=== PATIENT | female | born 1955 | race Caucasian/White ===

== ENCOUNTER 2016-11-09 11:45 | Emergency (ER) | payer OTHER, MEDICARE ==
[~2016-11-09] VITALS: Ht 147.3 cm; Wt 89.8 kg
[~2016-11-09 11:45] MED LIST: ALLOPURINOL300 M1 PO; ANTIVERT 12.512.5 MG PO; CAPTOPRIL25 M1 PO; CAPTOPRIL50 MG PO; FLUOXETINE HCL60 MG PO; FUROSEMIDE20 MG PO; LASIX20 MG PO; LEVOTHROID0.1 MG PO; LEVOTHYROXINE0.2 M2 PO; METOPROLOL TART25 M1 PO; MULTIPLE VITAM1 EAC2 PO; NAPHCON A 0.02515 ML OTIC; PRILOSEC OTC20 M1 PO; SIMVASTATIN20 MG PO; VALIUM2 MG PO
--- NOTE | 2016-11-09 11:50 | ED DYSPNEA/ASTHMA COMPLAINT ---
History of Present Illness General Chief Complaint: Dyspnea (COPD, CHF, Other) Stated Complaint: CONGESTION Source: patient, old records, EMS, W10 Exam Limitations: no limitations Vital Signs & Intake/Output Vital Signs & Intake/Output Vital Signs Date Time Temp Pulse Resp B/P Pulse O2 O2 Flow FiO2 Ox Delivery Rate 11/09 1313 94 Nasal 2.0L Cannula 11/09 1229 97.6 70 22 145/68 95 Nasal 3.0L Cannula 11/09 1215 96 Nasal 2.0L Cannula 11/09 1152 97.6 64 18 144/77 94 Nasal 2.0L Cannula Allergies Coded Allergies: NO KNOWN ALLERGIES (09/07/14) Reconcile Medications Allopurinol 300 MG TABLET 1 TAB PO DAILY GOUT (Reported) Amoxicillin/Clavulanate Potass (Amox-Clav 875-125 MG Tablet) 875 MG-125 MG TABLET 1 TAB PO BID ANTIBIOTIC, INFECTION (Reported) Atorvastatin Calcium 20 MG TABLET 1 TAB PO DAILY CHOLESTEROL (Reported) Calcium Carbonate/Vitamin D3 (Os-[place] 500+D3 Caplet) 500 MG-200 TABLET 1 TAB PO BID SUPPLEMENT (Reported) Captopril 25 MG TABLET 1 TAB PO BID BP (Reported) Docusate Sodium (Colace) 100 MG CAPSULE 1 CAP PO BID GI (Reported) Ergocalciferol (Vitamin D2) (Vitamin D2) 50,000 UNIT CAPSULE 1 CAP PO Q30D SUPPLEMENT (Reported) Ferrous Sulfate 325 MG (65 MG IRON) TABLET 1 TAB PO BID SUPPLEMENT (Reported) Fluoxetine HCl 60 MG TABLET 1 TAB PO DAILY MENTAL HEALTH (Reported) Furosemide 20 MG TABLET 1 TAB PO BID WATER PILL (Reported) Guaifenesin (Mucus Relief) 400 MG TABLET 1 TAB PO BID COLD SYMPTOMS (Reported ) Ipratropium/Albuterol Sulfate (Iprat-Albut 0.5-3(2.5) MG/3 Ml) 0.5 MG-3 MG (2.5 MG BASE)/3 ML AMPUL.NEB 1 VIAL INH 4 TIMES/DAY BREATHING PROBLEMS (Reported) Lactobacillus Acidophilus (Acidophilus) 1 EACH CAPSULE 1 CAP PO BID GI ( Reported) Levothyroxine Sodium 100 MCG TABLET 1 TAB PO DAILY AC HYPOTHYROID (Reported) Losartan Potassium 100 MG TABLET 1 TAB PO DAILY HEART (Reported) Metoprolol Tartrate 25 MG TABLET 1 TAB PO BID BP (Reported) Multivitamin (Multiple Vitamins) 1 EACH TABLET 1 TAB PO DAILY SUPPLEMENT ( Reported) Nitrofurantoin Monohyd/M-Cryst (Nitrofurantoin [place]-Mcr 100 MG) 100 MG CAPSULE 1 CAP PO BID ANTIBIOTIC, INFECTION (Reported) Omeprazole Magnesium (Prilosec Otc) 20 MG TABLET.DR 1 TAB PO DAILY GERD ( Reported) Polyethylene Glycol 3350 (Miralax) 17 GRAM POWD.PACK 1 PAC PO DAILY GI ( Reported) dissolve in water Potassium Chloride 10 MEQ CAPSULE.ER 1 CAP PO DAILY SUPPLEMENT (Reported) Sennosides (Senna) 8.6 MG TABLET 2 TAB PO DAILY GI (Reported) Simvastatin (Zocor) 20 MG TAB 1 TAB PO DAILY CHOLESTEROL (Reported) Triage Nurses Notes Reviewed? yes Onset: Gradual Duration: week(s): (6), worse persistent since (2 WEEKS) Timing: recent history Severity: moderate Activities at Onset: none Associated Symptoms: cough HPI: This is a 61-year-old female presents from [facility] for chief complaint of cough for 6 weeks, chest pain for 2 weeks. She is status post a course of Levaquin that ended on . She states she is coughing up green and yellow sputum. Denies any fever or chills. Denies any recent authorizations. Positive sick contacts at the [facility]. She states that her roommate is also ill. Patient is currently bedbound, hasn't walked in 8 weeks. She is awake alert and oriented 2. Denies any other symptoms specifically abdominal pain nausea vomiting or diarrhea. Denies any rashes. Past History Medical History Any Pertinent Medical History? 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 No Review of Systems Review of Systems Constitutional: Denies: chills, fever. EENTM: Reports: no symptoms. Respiratory: Reports: cough, short of breath, sputum production. Cardiovascular: Denies: chest pain, palpitations. GI: Denies: abdominal pain, diarrhea, vomiting. Genitourinary: Denies: dysuria. Musculoskeletal: Reports: no symptoms. Skin: Reports: no symptoms. Neurological/Psychological: Denies: confusion. Hematologic/Endocrine: Denies: bruising, bleeding, polyuria, polydipsia. Immunologic/Allergic: Denies: splenectomy. All Other Systems: Reviewed and Negative Physical Exam Physical Exam General Appearance: well developed/nourished, alert, awake, moderate distress, obese Head: atraumatic Eyes: Bilateral: PERRL, EOMI. Ears, Nose, Throat: normal pharynx, normal ENT inspection, hearing grossly normal Neck: normal inspection, supple, full range of motion Respiratory: wheezing Cardiovascular: regular rate/rhythm Peripheral Pulses: 2+ radial (R), 2+ radial (L) Gastrointestinal: soft, OBESE, NONTENDER Extremities: BILATERAL 2+ PEDAL EDEMA Neurologic/Psych: alert, oriented x 3 Skin: intact, normal color, warm/dry Core Measures ACS in differential dx? No Severe Sepsis Present: No Septic Shock Present: No Progress Differential Diagnosis: CHF, COPD, pneumonia Plan of Care: Orders Procedure Date/time Status Consistent Carbohydrate 1 11/09 D Active RT ED ORDERS 11/09 1158 Active RAPID VIRAL INFLUENZA A 11/09 1158 Active LOWER RESPIRATORY CULTURE 11/09 1158 Active BLOOD CULTURE 11/09 1158 Active TROPONIN LEVEL 11/09 1158 Complete COMPREHENSIVE METABOLIC PANEL 11/09 1158 Complete CBC WITHOUT DIFFERENTIAL 11/09 1158 Complete EKG 11/09 1147 Active Laboratory Tests 11/09/16 1210: Anion Gap 5, Estimated GFR > 60, BUN/Creatinine Ratio 38.0 H, Glucose 101 H, Calcium 8.7, Total Bilirubin 1.0, AST 58 H, ALT 50, Alkaline Phosphatase 92, Troponin I < 0.01, Total Protein 5.5 L, Albumin 2.7 L, Globulin 2.8, Albumin/ Globulin Ratio 1.0 L, CBC w Diff NO MAN DIFF REQ, RBC 4.10 L, MCV 95.0, MCH 30.8, RDW 16.1 H, MPV 8.3, Gran % 67.1, Lymphocytes % 21.5, Monocytes % 10.5 H , Eosinophils % 0.6, Basophils % 0.3, Absolute Granulocytes 6.6 H, Absolute Lymphocytes 2.1, Absolute Monocytes 1.0 H, Absolute Eosinophils 0.1, Absolute Basophils 0, PUBS MCHC 32.4 L Microbiology 11/09 1230 BLOOD: Blood Culture - RECD 11/09 1210 BLOOD: Blood Culture - RECD 11/09 1158 LOWER RESP: Respiratory Culture - ORD 11/09 1158 LOWER RESP: Gram Stain - ORD EKG, CXR. LABS ORDERED DUONEB ORDERED. CXR negative for pneumonia. Patient feeling better after duoneb. IV solumedrol ordered. (ZOE CAMILO,HILARIO) Diagnostic Imaging: Viewed by Me: Radiology Read. Discussed w/RAD: Radiology Read. Initial ED EKG: NSR Comments: PATIENT: JONATHON JERONIMO PRESENT AGE: 61 PATIENT ACCOUNT NO: [id number] : 56 LOCATION: [facility] ORDERING PHYSICIAN: HILARIO ENRIQUEZ MD SERVICE DATE: 11/09/16-1157 EXAM TYPE: RAD - XRY-PORTABLE CHEST XRAY EXAMINATION: XR PORTABLE CHEST CLINICAL INFORMATION: Cough, shortness of breath and hypoxia. Evaluate for pneumonia. COMPARISON: 02/28/2015 TECHNIQUE: Portable AP view of the chest was obtained. FINDINGS: Patient has a large body habitus. There is mild discoid atelectasis of the right midlung. No evidence of acute airspace opacification or pleural effusion. Cardiomediastinal silhouette has stable size and configuration. Again noted is a stent within the mediastinum. There is an old, healed fracture of the left humeral neck. IMPRESSION: Discoid atelectasis in the right midlung. No radiographic evidence of acute pneumonia compared to 02/28/2015. DICTATED BY: JUSTA APONTE MD DATE/TIME DICTATED:11/09/161247 ELECTROTYPE FINISHER:DISHA DATE/TIME TRANSCRIBED:11/09/161247 CONFIDENTIAL, DO NOT COPY WITHOUT APPROPRIATE AUTHORIZATION. <Electronically signed in Other Vendor System> SIGNED BY: JUSTA APONTE MD 11/09/16 1257 Departure Departure Time of Disposition: 1410 Disposition: ACUTE REHAB FACILITY Condition: Stable Clinical Impression Primary Impression: Bronchitis Referrals: VIK CAMILO,JENNIE Collins (PCP/Family) Departure Forms: Customer Survey General Discharge Information Critical Care Note Critical Care Note Critical Care Time: non-applicable
[2016-11-09] MEDS ORDERED: AMOX-CLAV 875-1 EACH PO (12:01)
[2016-11-09] MEDS ORDERED: NITROFURANTOIN100 M6 PO (12:02)
[2016-11-09] MEDS ORDERED: LOSARTAN POTAS100 M1 PO (12:03)
[2016-11-09] MEDS ORDERED: ATORVASTATIN CA20 M1 PO (12:04)
[2016-11-09] MEDS ORDERED: ACIDOPHILUS1 EACH PO (12:05)
[2016-11-09] MEDS ORDERED: FUROSEMIDE20 M1 PO (12:05)
[2016-11-09] MEDS ORDERED: LEVOTHYROXINE100 MC1 PO (12:06)
[2016-11-09] MEDS ORDERED: MIRALAX17 G1 PO (12:07)
[2016-11-09] MEDS ORDERED: COLACE100 M1 PO (12:07)
[2016-11-09] MEDS ORDERED: SENNA8.6 M3 PO (12:08)
[2016-11-09] MEDS ORDERED: IPRAT-ALBUT 0.5-3 ML INH (12:09)
[2016-11-09] MEDS ORDERED: MUCUS RELIEF400 M1 PO (12:10)
[2016-11-09] MEDS ORDERED: FERROUS SULFAT325 M3 PO (12:10)
[2016-11-09] MEDS ORDERED: VITAMIN D250000 UNIT PO (12:11)
[2016-11-09] MEDS ORDERED: OS-CAL 500+D31 EAC1 PO (12:11)
[2016-11-09] MEDS ORDERED: POTASSIUM CHLO10 ME3 PO (12:12)
[2016-11-09 12:31] LABS: ABSOLUTE BASOPHIL COUNT 0 /CUMM (0.0-0.2); ABSOLUTE EOSINOPHIL COUNT 0.1 /CUMM (0.0-0.7); ABSOLUTE GRANULOCYTE CT 6.6 /CUMM (1.4-6.5); ABSOLUTE LYMPH COUNT 2.1 /CUMM (1.2-3.4); BASOPHIL % 0.3 % (0.0-2.0); EOSINOPHIL % 0.6 % (0-5); GRANULOCYTE % 67.1 % (42.2-75.2); HEMATOCRIT 38.9 % (37-47); MEAN CORPUSCULAR HGB 30.8 PG (27.0-31.0); MEAN CORPUSCULAR HGB CONC 32.4 G/DL (33.0-37.0); MEAN PLATELET VOLUME 8.3 FL (7.4-10.4); PLATELET COUNT 273 /CUMM (130-400); RBC DISTRIBUTION WIDTH 16.1 % (11.5-14.5); WHITE BLOOD CELL COUNT 9.8 /CUMM (4.8-10.8)
--- NOTE | 2016-11-09 12:57 | RADIOLOGY REPORT ---
EXAMINATION: XR PORTABLE CHEST CLINICAL INFORMATION: Cough, shortness of breath and hypoxia. Evaluate for pneumonia. COMPARISON: 02/28/2015 TECHNIQUE: Portable AP view of the chest was obtained. FINDINGS: Patient has a large body habitus. There is mild discoid atelectasis of the right midlung. No evidence of acute airspace opacification or pleural effusion. Cardiomediastinal silhouette has stable size and configuration. Again noted is a stent within the mediastinum. There is an old, healed fracture of the left humeral neck. IMPRESSION: Discoid atelectasis in the right midlung. No radiographic evidence of acute pneumonia compared to 02/28/2015.
[2016-11-09 14:25] VITALS: BP 140/60
== END 2016-11-09 14:23 ==
LOC: ERH 11:45
PROVIDERS: Emergency Medicine
DX: J40 Bronchitis, not specified as acute or chronic (principal); R07.9 Chest pain, unspecified
CPT/HCPCS: 1263; 87040; 87070; 87804; 87804-59; 93005; 93010; 96374; J2930

== ENCOUNTER 2016-12-20 11:14 | Emergency (ER) | payer OTHER, MEDICARE ==
[~2016-12-20] VITALS: Ht 152.4 cm; Wt 136.1 kg
[~2016-12-20 11:14] MED LIST changes: +ACIDOPHILUS1 EACH PO; +AMOX-CLAV 875-1 EACH PO; +ATORVASTATIN CA20 M1 PO; +COLACE100 M1 PO; +FERROUS SULFAT325 M3 PO; +FUROSEMIDE20 M1 PO; +IPRAT-ALBUT 0.5-3 ML INH; +LEVOTHYROXINE100 MC1 PO; +LOSARTAN POTAS100 M1 PO; +MIRALAX17 G1 PO; +MUCUS RELIEF400 M1 PO; +NITROFURANTOIN100 M6 PO; +OS-CAL 500+D31 EAC1 PO; +POTASSIUM CHLO10 ME3 PO; +SENNA8.6 M3 PO; +VITAMIN D250000 UNIT PO
--- NOTE | 2016-12-20 11:17 | ED GI/GU/ABDOMINAL COMPLAINT ---
History of Present Illness General Chief Complaint: Nausea, Vomiting, Diarrhea Stated Complaint: NAUSEA/VOMITING, FEVER, ABDOMINAL PAIN Source: patient, old records, EMS Exam Limitations: physical impairment Vital Signs & Intake/Output Vital Signs & Intake/Output Vital Signs Date Time Temp Pulse Resp B/P Pulse O2 O2 Flow FiO2 Ox Delivery Rate 12/20 1638 96.0 69 20 116/50 97 Nasal 2.0L Cannula 12/20 1616 70 20 133/62 96 Nasal 2.0L Cannula 12/20 1441 96.0 70 20 113/54 95 Nasal 1.0L Cannula 12/20 1405 97.2 67 20 104/49 97 Nasal 2.0L Cannula 12/20 1305 96 Nasal 4.0L Cannula 12/20 1304 97.0 87 20 103/50 97 Nasal 4.0L Cannula 12/20 1125 96 Nasal 4.0L Cannula 12/20 1124 99.2 82 20 114/57 86 Room Air Allergies Coded Allergies: NO KNOWN ALLERGIES (09/07/14) Reconcile Medications Acetaminophen 325 MG TABLET 2 TAB PO Q6-8P PAIN CONTROL (Reported) TEMP > 101 Allopurinol 300 MG TABLET 1 TAB PO DAILY GOUT (Reported) Atorvastatin Calcium 20 MG TABLET 1 TAB PO DAILY CHOLESTEROL (Reported) Calcium Carbonate/Vitamin D3 (Os-[place] 500+D3 Caplet) 500 MG-200 TABLET 1 TAB PO BID SUPPLEMENT (Reported) Docusate Sodium (Colace) 100 MG CAPSULE 1 CAP PO BID GI (Reported) Ergocalciferol (Vitamin D2) (Vitamin D2) 50,000 UNIT CAPSULE 1 CAP PO Q30D SUPPLEMENT (Reported) Ferrous Sulfate 325 MG (65 MG IRON) TABLET 1 TAB PO BID SUPPLEMENT (Reported) Fluoxetine HCl 60 MG TABLET 1 TAB PO DAILY MENTAL HEALTH (Reported) Furosemide 20 MG TABLET 1 TAB PO BID WATER PILL (Reported) Ipratropium/Albuterol Sulfate (Iprat-Albut 0.5-3(2.5) MG/3 Ml) 0.5 MG-3 MG (2.5 MG BASE)/3 ML AMPUL.NEB 1 VIAL INH 4XDP BREATHING PROBLEMS (Reported) Levothyroxine Sodium 112 MCG TABLET 1 TAB PO DAILY THYROID HEALTH (Reported) Losartan Potassium 100 MG TABLET 1 TAB PO DAILY HEART (Reported) Metoprolol Tartrate 25 MG TABLET 1 TAB PO BID BP (Reported) Naloxone HCl (Narcan) 4 MG/ACTUATION SPRAY 1 SPRAY YANIV PRN BREATHING PROBLEMS (Reported) FOR OPIOD INDUCED RESP DEPRESSION, REPEAT X 1 IF NECESSARY Omeprazole Magnesium (Prilosec Otc) 20 MG TABLET.DR 2 TAB PO DAILY GERD ( Reported) Polyethylene Glycol 3350 (Miralax) 17 GRAM POWD.PACK 1 PAC PO DAILY GI ( Reported) dissolve in water Potassium Chloride 10 MEQ CAPSULE.ER 1 CAP PO DAILY SUPPLEMENT (Reported) Sennosides (Senna) 8.6 MG TABLET 2 TAB PO DAILY GI (Reported) Triage Nurses Notes Reviewed? yes ? N Is pt currently ? 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 Patient has had multiple episodes of loose watery stool diarrhea production with no blood or melena noted. History is limited however due to patient's history of traumatic brain injury however EMS states that there is no concern of melena or bright red blood from staff at [facility]. EMS states that the nursing facility state to them that patient has acting at her baseline (ROSALBA DAY) Past History Travel History Traveled to [place] past 21 day No Medical History Any Pertinent Medical History? 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 No (ROSALBA DAY) Review of Systems Review of Systems Constitutional: Reports: see HPI, fever. EENTM: Reports: no symptoms. Respiratory: Reports: see HPI. Denies: cough, short of breath. Cardiovascular: Reports: see HPI. Denies: chest pain, palpitations. GI: Reports: see HPI, abdominal pain, nausea, vomiting. Genitourinary: Reports: no symptoms. Musculoskeletal: Reports: no symptoms. Skin: Reports: no symptoms. Neurological/Psychological: Reports: no symptoms. Hematologic/Endocrine: Reports: no symptoms. Immunologic/Allergic: Reports: no symptoms. All Other Systems: Reviewed and Negative (ROSALBA DAY) Physical Exam Physical Exam General Appearance: no apparent distress, alert, comfortable, obese Gastrointestinal: normal bowel sounds, GENERALIZED ABDOMINAL TENDERNESS Comments: HEENT: Normal EENT exam, Neck: Supple, no lymphadenopathy, normal range of motion without pain or tenderness Back: Nontender, no CVA tenderness. Cardiovascular: Regular rate and rhythms no murmurs rubs or gallops, normal JVP Respiratory: Chest nontender. No respiratory distress.breath sounds clear to auscultation bilaterally Abdomen: Soft, GENERALIZED point tenderness noted no appreciable organomegaly. Normal bowel sounds. No ascites Extremity: No edema, no calf tenderness to palpation, normal and equal pulses. Neuro: Alert motor sensory normal, Skin: No appreciable rash on exposed skin, skin is warm and dry. Psych: Mood and affect is normal, memory and judgment is normal. Diagram Body Front & Back 1) Erythematous SKIN AND WARMTH NOTED Core Measures ACS in differential dx? No Severe Sepsis Present: No Septic Shock Present: No (ROSALBA DAY) Progress Differential Diagnosis: AAA, AMI, appendicitis, biliary colic, bowel obstruction , colon cancer, cholecystitis, diverticulitis, ectopic , endometritis, esophageal varices, gastritis, hepatitis, hernia, hemorrhoids, ischemic bowel, inflamm bowel dis, kidney stone, [place] tear, ovarian cyst, ovarian torsion, pancreatitis, PID/cervicitis, peptic ulcer, PUD/GERD, perforated viscous, SBO, UTI/pyelo Plan of Care: Orders Procedure Date/time Status Heart Healthy Diet 12/20 D Active LACTIC ACID 12/20 1419 Complete THYROID STIMULATING HORMONE 12/20 1200 Complete LIPASE 12/20 1200 Complete FREE T4 12/20 1200 Complete ETHANOL 12/20 1200 Complete AMYLASE 12/20 1200 Complete CULTURE,STOOL 12/20 1130 Active C.DIFFICILE 12/20 1130 Active Walker, Insertion/Removal/Asses 12/20 1121 Active CULTURE,URINE 03/26 1121 Active URINE DRUG SCREEN FOR ER ONLY 12/20 1120 Complete EKG 12/20 1120 Active ARTERIAL BLOOD GAS (GEN) 12/21 1119 Complete BLOOD CULTURE 12/20 1118 Active URINALYSIS 12/20 1118 Complete PARTIAL THROMBOPLASTIN TIME 12/20 1118 Complete PROTHROMBIN TIME 12/20 1118 Complete LACTIC ACID 12/20 1118 Complete DIRECT BILIRUBIN 12/20 1118 Complete COMPREHENSIVE METABOLIC PANEL 12/20 1118 Complete CBC WITHOUT DIFFERENTIAL 12/20 1118 Complete TYPE & SCREEN (NOT X-MATCH) 12/20 1118 Complete Laboratory Tests 12/20/16 1419: Lactic Acid 1.2 12/20/16 1200: Anion Gap 6, Estimated GFR > 60, BUN/Creatinine Ratio 24.4, Glucose 116 H, Lactic Acid 2.3 H, Calcium 9.3, Total Bilirubin 0.8, Direct Bilirubin 0.4, AST 81 H, ALT 47, Alkaline Phosphatase 94, Total Protein 5.5 L, Albumin 2.7 L, Globulin 2.8, Albumin/Globulin Ratio 1.0 L, Amylase < 30 L, Lipase 199, TSH 3.250, Free T4 1.72, PT 12.6 H, INR 1.20 H, APTT 31, CBC w Diff NO MAN DIFF REQ, RBC 4.03 L, MCV 93.7, MCH 30.2, RDW 16.9 H, MPV 9.0, Gran % 65.4, Lymphocytes % 17.3 L, Monocytes % 16.4 H, Eosinophils % 0.5, Basophils % 0.4, Absolute Granulocytes 4.1, Absolute Lymphocytes 1.1 L, Absolute Monocytes 1.0 H, Absolute Eosinophils 0, Absolute Basophils 0, PUBS MCHC 32.2 L, Serum Alcohol < 10.0 12/20/16 1145: pH 7.50 H, pCO2 34 L, pO2 80, HCO3 26, ABG O2 Sat (Measured) 96.0, Carboxyhemoglobin 0.1 L, O2 Concentration % 4.5L, O2 Delivery Method NC, Phlebotomy Draw Site RIGHT RADIAL 12/20/16 1143: Urine Opiates Screen < 100.00, Methadone Screen 42, Barbiturate Screen < 60, Ur Phencyclidine Scrn < 6.00, Amphetamines Screen < 100, U Benzodiazepines Scrn < 85, Urine Cocaine Screen < 50, Urine Cannabis Screen < 5.00, Urine Color YEL, Urine Clarity CLDY H, Urine pH 6.0, Ur Specific [place] 1.020, Urine Protein TRACE H, Urine Ketones NEG, Urine Nitrite POS H, Urine Bilirubin NEG, Urine Urobilinogen 0.2, Ur Leukocyte Esterase SMALL H, Ur Microscopic SEDIMENT EXAMINED, Urine WBC > 75 H, Ur Epithelial Cells FEW, Urine Bacteria MANY H, Urine Hemoglobin TRACE-INTACT, Urine Glucose NEG 12/20/16 1122: Amylase Cancelled, Lipase Cancelled 12/20/16 1121: Serum Alcohol Cancelled 12/20/16 1120: TSH Cancelled, Free T4 Cancelled Microbiology 12/20 1236 BLOOD: Blood Culture - RECD 12/20 1200 BLOOD: Blood Culture - RECD 12/20 1143 URINE ROUT: Urine Culture - RECD 12/20 1143 STOOL: Clostridium difficile Toxin A & B - RES 12/20 1143 STOOL: Stool Culture - RES 12/20 1119 URINE ROUT: Urine Culture - CAN Cancelled: NOT REC'D IN LAB - UC ON WALKER REC'D AT 1143 - SEE [id number] Patient currently is in no apparent distress. Patient was afebrile in the emergency room. Patient initially had hypotension noted however she was given IV fluid resuscitation and became normotensive. CT scan was remarkable for concerns of nonspecific colitis Patient does have concerns of UTI urine culture pending. Patient was noted to be sleeping in the ER where she did drop her oxygen saturation however I believe that this time the patient due to obesity but there is concerns of sleep apnea and which I strongly advised on patient's discharge paperwork to follow-up with sleep study to evaluate concerns of CPAP at night. Patient was arousable and followed all commands and no concerns of neurological dysfunction. Patient then was by mouth challenged and was able tolerate soft liquid diet with no exacerbation of symptoms. Patient discharge instructions included follow-up with pulmonary for sleep study, begin Bactrim for UTI and a clear liquid bland diet to rest bowels and to follow up with GI if no better in 2 days. Discussed disposition plan with Dr. Hadley who agrees (FAVIO CHESTER,ROSALBA) Diagnostic Imaging: Viewed by Me: CT Scan. Radiology Impression: SEE COMMENTS Initial ED EK BPM, LVH Prior EKG: unchanged Comments: PATIENT: JONATHON JERONIMO PRESENT AGE: 61 PATIENT ACCOUNT NO: [id number] : 56 LOCATION: [facility] ORDERING PHYSICIAN: ROSALBA CHESTER SERVICE DATE: 12/20/16 EXAM TYPE: CAT - CT ABD & PELVIS W IV CONTRAST EXAMINATION: CT ABDOMEN AND PELVIS WITH CONTRAST CLINICAL INFORMATION: Abdominal pain and fever COMPARISON: 02/20/2013 CT scan TECHNIQUE: Multidetector volumetric imaging was performed from the superior aspect of the liver through the pubic symphysis following administration of 95 ml of Optiray 320 Sagittal and coronal reformatted images were obtained on the technologist workstation. DLP: 1173 mGy-cm FINDINGS: LUNG BASES: Mild bibasilar dependent markings more suggestive of atelectasis. Prominent mitral annular calcification seen. Visualized left atrium appears to be enlarged. LIVER, GALLBLADDER, AND BILIARY TREE: There is the suggestion of a small intrahepatic portosystemic shunt in the lateral left lobe of the liver. No focal hepatic lesions seen otherwise. No biliary ductal dilatation. Tiny gallstone suspected in the dependent portion of the otherwise unremarkable gallbladder. PANCREAS: Diffuse fatty replacement but no focal abnormality seen. SPLEEN: Unremarkable. ADRENAL GLANDS: Unremarkable. KIDNEYS AND URETERS: 1.4 cm exophytic probable cyst off of the lateral lower pole of the left kidney. This is too small to accurately characterize with beam hardening artifact from the adjacent left arm but on the thin slice images does appear to measure fluid density. Otherwise the kidneys are normal in size, shape, and attenuation. No hydronephrosis, hydroureter, or calculi seen. No perinephric stranding. BLADDER: Decompressed by Walker catheter. GASTROINTESTINAL TRACT: There is scattered colonic diverticulosis but no evidence for diverticulitis. No pericolonic inflammatory changes. I cannot exclude mild thickening in the rectosigmoid colon however this area is decompressed and difficult to evaluate otherwise. This had a more normal appearance on the 2013 CT scan. Normal-appearing appendix in the right lower quadrant. ABDOMINAL WALL: No significant hernia is appreciated. LYMPHOVASCULAR STRUCTURES: No lymphadenopathy. The aorta is unremarkable. PELVIC VISCERA: Probable uterine fibroid again seen along the left fundal portion of the uterus. OSSEOUS STRUCTURES: Multilevel degenerative changes in the spine but no acute bony abnormality appreciated. IMPRESSION: Although decompressed, there is a suggestion of focal wall thickening in the rectosigmoid colon. A subtle nonspecific colitis cannot be excluded. This does not have the typical appearance for diverticulitis. I do not appreciate any significant pericolonic inflammatory changes however. No free air or free fluid. Chronic appearing changes otherwise as described. DICTATED BY: HANANE CERVANTES MD DATE/TIME DICTATED:12/20/161355 [employer] MANAGER:DISHA PATIENT: JONATHON JERONIMO PRESENT AGE: 61 PATIENT ACCOUNT NO: [id number] : 56 LOCATION: [facility] ORDERING PHYSICIAN: ROSALBA CHESTER SERVICE DATE: 12/20/16 EXAM TYPE: RAD - XRY-PORTABLE CHEST XRAY EXAMINATION: XR PORTABLE CHEST CLINICAL INFORMATION: Hypoxia COMPARISON: None TECHNIQUE: Portable AP view of the chest was obtained. FINDINGS: The heart is within limits of normal size. Again, there is a stent overlying the mediastinum and pulmonary vascularity appears normal and there is no vascular congestion or effusion. Subtle coarsening of the bronchovascular markings is noted at the left retrocardiac region which may represent early infiltrate and/or subsegmental atelectasis. IMPRESSION: Early infiltrate versus subsegmental atelectasis left posterior base. Right lung clear. No vascular congestion. (ROSALBA DAY) Departure Departure Disposition: HOME OR SELF CARE Condition: Stable Clinical Impression Primary Impression: Colitis Secondary Impressions: Sleep apnea, UTI (urinary tract infection) Referrals: VIK CAMILO,JENNIE Collins (PCP/Family) Additional Instructions: W-10 DICTATED INSTRUCTIONS BACTRIM DS FOR UTI CLEAR liquid and bland diet. Zofran for his nausea follow-up with pulmonology for sleep apnea evaluation. Departure Forms: Customer Survey General Discharge Information (ROSALBA DAY) PA/AIRFREIGHT OPERATIONS AGENT Co-Sign Statement Statement: ED Attending supervision documentation- [X] I saw and evaluated the patient. I have also reviewed all the pertinent lab results and diagnostic results. I agree with the findings and the plan of care as documented in the PA's/AIRFREIGHT OPERATIONS AGENT's documentation. [X] I have reviewed the ED Record and agree with the PA's/AIRFREIGHT OPERATIONS AGENT's documentation. [] Additions or exceptions (if any) to the PAs/AIRFREIGHT OPERATIONS AGENT's note and plan are summarized below: [] (VAHID CAMILO,YONATAN Coker)
[2016-12-20] MEDS ORDERED: LEVOTHYROXINE112 MCG PO (11:33)
[2016-12-20] MEDS ORDERED: ACETAMINOPHEN325 M2 PO (11:43)
[2016-12-20] MEDS ORDERED: NARCAN4 MG NAS (11:47)
[2016-12-20 12:18] LABS: ABSOLUTE BASOPHIL COUNT 0 /CUMM (0.0-0.2); ABSOLUTE EOSINOPHIL COUNT 0 /CUMM (0.0-0.7); ABSOLUTE GRANULOCYTE CT 4.1 /CUMM (1.4-6.5); ABSOLUTE LYMPH COUNT 1.1 /CUMM (1.2-3.4); BASOPHIL % 0.4 % (0.0-2.0); EOSINOPHIL % 0.5 % (0-5); GRANULOCYTE % 65.4 % (42.2-75.2); HEMATOCRIT 37.7 % (37-47); MEAN CORPUSCULAR HGB 30.2 PG (27.0-31.0); MEAN CORPUSCULAR HGB CONC 32.2 G/DL (33.0-37.0); MEAN CORPUSCULAR VOLUME 93.7 FL (81.0-99.0); PLATELET COUNT 217 /CUMM (130-400); RBC DISTRIBUTION WIDTH 16.9 % (11.5-14.5); RED BLOOD CELL CT 4.03 /CUMM (4.20-5.40); WHITE BLOOD CELL COUNT 6.2 /CUMM (4.8-10.8)
[2016-12-20 12:29] LABS: PT 12.6 SEC (9.4-12.5); PTT 31 SEC (25-37)
--- NOTE | 2016-12-20 12:31 | RADIOLOGY REPORT ---
EXAMINATION: XR PORTABLE CHEST CLINICAL INFORMATION: Hypoxia COMPARISON: None TECHNIQUE: Portable AP view of the chest was obtained. FINDINGS: The heart is within limits of normal size. Again, there is a stent overlying the mediastinum and pulmonary vascularity appears normal and there is no vascular congestion or effusion. Subtle coarsening of the bronchovascular markings is noted at the left retrocardiac region which may represent early infiltrate and/or subsegmental atelectasis. IMPRESSION: Early infiltrate versus subsegmental atelectasis left posterior base. Right lung clear. No vascular congestion.
--- NOTE | 2016-12-20 14:07 | CT SCAN REPORT ---
EXAMINATION: CT ABDOMEN AND PELVIS WITH CONTRAST CLINICAL INFORMATION: Abdominal pain and fever COMPARISON: 02/20/2013 CT scan TECHNIQUE: Multidetector volumetric imaging was performed from the superior aspect of the liver through the pubic symphysis following administration of 95 ml of Optiray 320 Sagittal and coronal reformatted images were obtained on the technologist workstation. DLP: 1173 mGy-cm FINDINGS: LUNG BASES: Mild bibasilar dependent markings more suggestive of atelectasis. Prominent mitral annular calcification seen. Visualized left atrium appears to be enlarged. LIVER, GALLBLADDER, AND BILIARY TREE: There is the suggestion of a small intrahepatic portosystemic shunt in the lateral left lobe of the liver. No focal hepatic lesions seen otherwise. No biliary ductal dilatation. Tiny gallstone suspected in the dependent portion of the otherwise unremarkable gallbladder. PANCREAS: Diffuse fatty replacement but no focal abnormality seen. SPLEEN: Unremarkable. ADRENAL GLANDS: Unremarkable. KIDNEYS AND URETERS: 1.4 cm exophytic probable cyst off of the lateral lower pole of the left kidney. This is too small to accurately characterize with beam hardening artifact from the adjacent left arm but on the thin slice images does appear to measure fluid density. Otherwise the kidneys are normal in size, shape, and attenuation. No hydronephrosis, hydroureter, or calculi seen. No perinephric stranding. BLADDER: Decompressed by Ruiz catheter. GASTROINTESTINAL TRACT: There is scattered colonic diverticulosis but no evidence for diverticulitis. No pericolonic inflammatory changes. I cannot exclude mild thickening in the rectosigmoid colon however this area is decompressed and difficult to evaluate otherwise. This had a more normal appearance on the 2013 CT scan. Normal-appearing appendix in the right lower quadrant. ABDOMINAL WALL: No significant hernia is appreciated. LYMPHOVASCULAR STRUCTURES: No lymphadenopathy. The aorta is unremarkable. PELVIC VISCERA: Probable uterine fibroid again seen along the left fundal portion of the uterus. OSSEOUS STRUCTURES: Multilevel degenerative changes in the spine but no acute bony abnormality appreciated. IMPRESSION: Although decompressed, there is a suggestion of focal wall thickening in the rectosigmoid colon. A subtle nonspecific colitis cannot be excluded. This does not have the typical appearance for diverticulitis. I do not appreciate any significant pericolonic inflammatory changes however. No free air or free fluid. Chronic appearing changes otherwise as described.
[2016-12-20 16:38] VITALS: BP 116/50
== END 2016-12-20 16:53 ==
LOC: ERH 11:14
PROVIDERS: Physician Assistant
DX: K52.9 Noninfective gastroenteritis and colitis, unspecified (principal); N39.0 Urinary tract infection, site not specified; G47.30 Sleep apnea, unspecified; R50.9 Fever, unspecified; E11.9 Type 2 diabetes mellitus without complications; E03.9 Hypothyroidism, unspecified; I10 Essential (primary) hypertension; R10.9 Unspecified abdominal pain; Z79.899 Other long term (current) drug therapy
CPT/HCPCS: 74177; 80307; 81001; 87040; 87045; 87086; 93005; 93010; 96374; 96375; G0480; J0696; J1885; J2405

== ENCOUNTER 2016-12-25 21:16 | Emergency (ER) | payer OTHER, MEDICARE ==
[~2016-12-25] VITALS: Ht 149.9 cm; Wt 90.7 kg
[~2016-12-25 21:16] MED LIST changes: +ACETAMINOPHEN325 M2 PO; +LEVOTHYROXINE112 MCG PO; +NARCAN4 MG NAS
--- NOTE | 2016-12-25 21:33 | ED CARDIAC/CP/PALPITATIONS ---
History of Present Illness General Chief Complaint: Chest Pain Stated Complaint: CHEST PAIN, SOB Source: patient, old records, EMS Exam Limitations: no limitations Vital Signs & Intake/Output Vital Signs & Intake/Output Vital Signs Date Time Temp Pulse Resp B/P Pulse O2 O2 Flow FiO2 Ox Delivery Rate 12/25 2324 98.3 70 20 134/62 93 Nasal 2.0L Cannula 12/254 94 Nasal 2.0L Cannula 12/25 2122 97.6 74 20 174/72 94 Nasal 2.0L Cannula ED Intake and Output 12/26 0000 12/25 1200 Intake Total 60 Output Total Balance 60 Intake, Oral 60 Patient 200 lb Weight Allergies Coded Allergies: NO KNOWN ALLERGIES (09/07/14) Reconcile Medications Acetaminophen 325 MG TABLET 2 TAB PO Q6H PRN PAIN/TEMP>101 (Reported) TEMP > 101 Acetaminophen (Acephen) 650 MG SUPP.RECT 1 SUPP MA Q6H PRN PAIN/TEMP>101 ( Reported) Atorvastatin Calcium 20 MG TABLET 1 TAB PO DAILY CHOLESTEROL (Reported) Bisacodyl (Dulcolax) 10 MG SUPP.RECT 1 SUP RC DAILY PRN CONSTIPATION ( Reported) Calcium Carbonate/Vitamin D3 (Os-Jeramie 500+D3 Caplet) 500 MG-200 TABLET 1 TAB PO BID SUPPLEMENT (Reported) Docusate Sodium (Colace) 100 MG CAPSULE 1 CAP PO BID GI (Reported) Ergocalciferol (Vitamin D2) (Vitamin D2) 50,000 UNIT CAPSULE 1 CAP PO Q30D SUPPLEMENT (Reported) Ferrous Sulfate 325 MG (65 MG IRON) TABLET 1 TAB PO BID SUPPLEMENT (Reported) Furosemide 20 MG TABLET 1 TAB PO BID WATER PILL (Reported) Glucagon,Human Recombinant (Glucagon Emergency Kit) 1 MG KIT 1 MG IM AD PRN HYPOGLYCEMIA (Reported) Guaifenesin (Adult Wal-Tussin) 100 MG/5 ML LIQUID 10 ML PO Q6H PRN MUCUS ( Reported) Ipratropium/Albuterol Sulfate (Iprat-Albut 0.5-3(2.5) MG/3 Ml) 0.5 MG-3 MG (2.5 MG BASE)/3 ML AMPUL.NEB 1 VIAL INH Q8H RESPIRATORY (Reported) Ipratropium/Albuterol Sulfate (Iprat-Albut 0.5-3(2.5) MG/3 Ml) 0.5 MG-3 MG (2.5 MG BASE)/3 ML AMPUL.NEB 3 ML INH Q6H PRN WHEEZE/SOB (Reported) Lactobacillus Acidophilus (Acidophilus) 1 EACH CAPSULE 1 CAP PO BID PROBIOTIC (Reported) Levothyroxine Sodium 112 MCG TABLET 1 TAB PO DAILY THYROID HEALTH (Reported) Losartan Potassium 100 MG TABLET 1 TAB PO DAILY HEART (Reported) Magnesium Hydroxide (Milk Of Magnesia) 400 MG/5 ML ORAL.SUSP 30 ML PO Q3D PRN CONSTIPATION (Reported) Na Phos,M-B/Na Phos,Di-Ba (Fleet Enema) 19 GRAM-7 GRAM/118 ML ENEMA 1 E RC DAILY PRN CONSTIPATION (Reported) Naloxone HCl (Narcan) 4 MG/ACTUATION SPRAY 1 SPRAY YANIV PRN BREATHING PROBLEMS (Reported) FOR OPIOD INDUCED RESP DEPRESSION, REPEAT X 1 IF NECESSARY Polyethylene Glycol 3350 (Miralax) 17 GRAM POWD.PACK 1 PAC PO DAILY GI ( Reported) dissolve in water Potassium Chloride 10 MEQ CAPSULE.ER 1 CAP PO DAILY SUPPLEMENT (Reported) Sennosides (Senna) 8.6 MG TABLET 2 TAB PO DAILY GI (Reported) Triage Note: PT BIBA FROM [facility] C/O CHEST PAIN AND EPIGASTRIC PAIN. PT CURRENTLY ON ABX FOR UTI. STATES IS ALWAY SOB, ON NC 2L AT [place]. O2 SAT 94%. +ANASARCA. "I'M ALWAYS SWOLLEN" EKG BEING DONE Triage Nurses Notes Reviewed? 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 When questioned as to why she came in tonight regarding this pain patient had no answer she states is no different from her typical pain. She denies cough shortness of breath hemoptysis. Patient denies worsening swelling in her extremities. She is on Lasix 20 mg a day. She is currently being treated for urinary tract infection. No fever no chills. The patient seen here 5 days ago for nausea vomiting diarrhea which she states has since resolved. Nothing makes pain better or worse (ROSALBA WILLIAM) Past History Travel History Traveled to [place] past 21 day No Medical History Any Pertinent Medical History? see below for history Neurological: TBI ENCEPHALOMALACIA EENT: NONE Cardiovascular: hypertension Respiratory: NONE Gastrointestinal: NONE Hepatic: NONE Renal: NONE Musculoskeletal: gout Psychiatric: depression Endocrine: hypothyroidism, DIABETES, DIET-CONTROLLED Blood Disorders: NONE Cancer(s): NONE CHILDREN'S TUTOR/Reproductive: NONE History of MRSA: No History of VRE: No Surgical History Surgical History: unobtainable Psychosocial History Who do you live with Patient/Self Services at Home Home Health Aide What is your primary language Malay Tobacco Use: Never used Family History Family History, If Any: MOTHER FHx: stomach cancer Hx Contributory? No (ROSALBA WILLIAM) Review of Systems Review of Systems Constitutional: Reports: see HPI. All Other Systems: Reviewed and Negative Comments Review of systems: See HPI, All other systems negative. Constitutional, no chills no fever, no malaise HEENT: No visual changes no sore throat no congestion, no ear pain Cardiovascular: chest pain , no palpitation , no orthopnea ankle swelling Skin, no jaundice no rashes, no change in skin Respiratory: No dyspnea no cough no sputum no hemoptysis GI: No nausea no vomiting, no diarrhea, no bloating/constipation : No dysuria No hematuria, Muscle skeletal: No joint pain, no back pain, no neck pain, Neurologic: No numbness no headache Psych: No stress Heme/endocrine: No bruising no bleeding Immunology: No lymphadenopathy (ROSALBA WILLIAM) Physical Exam Physical Exam General Appearance: well developed/nourished, alert, awake Cardiovascular: regular rate/rhythm Comments: Well-developed well-nourished person in no acute distress HEENT: Normal EENT exam; PERRL, EOMI, HEAD is atraumatic. moist mucous membranes. Neck: Supple, normal range of motion Back: Nontender, no CVA tenderness. Full range of motion Cardiovascular: Regular rate and rhythms no murmurs rubs or gallops, normal JVP Respiratory: Chest nontender.There were no bony deformities, no asymmetry. No respiratory distress. Patient speaking in full complete sentences. Breath sounds clear to auscultation bilaterally: NO W/R/R Abdomen: Soft, obese nontender nondistended, no appreciable organomegaly. Normal bowel sounds. No rebound/guarding, Extremity: No edema, full range of motion of extremities, normal and equal pulses bilaterally, 5 out of 5 strength noted to bilateral upper and lower extremities Neuro: Alert oriented x3, motor sensory normal, There were no obvious focal neurologic abnormalities. Skin: No appreciable rash on exposed skin, skin is warm and dry. Psych: Mood and affect is normal, memory and judgment is normal. Core Measures ACS in differential dx? Yes Severe Sepsis Present: No Septic Shock Present: No (NATALIA CHESTER,ROSALBA) Progress Differential Diagnosis: AMI, aortic dissection, atrial fibrillation, myocarditis , pneumonia, pneumothorax, pulmonary embolism, PVCs/PACs, unstable angina Plan of Care: Orders Procedure Date/time Status TROPONIN LEVEL 12/27 219 Complete EKG 12/27 219 Active URINALYSIS 12/25 2246 Complete Telemetry/[place] Paver Operator 12/25 2132 Active TROPONIN LEVEL 12/25 2132 Complete PROTHROMBIN TIME 12/25 2132 Complete MAGNESIUM 12/25 2132 Complete COMPREHENSIVE METABOLIC PANEL 12/25 2132 Complete CBC WITHOUT DIFFERENTIAL 12/25 2132 Complete B-TYPE NATRIURETIC PEP (BNP) 12/25 2132 Complete EKG 12/25 2116 Active Laboratory Tests 12/26/16 0216: Troponin I < 0.01 12/25/165: Urine Color YEL, Urine Clarity CLEAR, Urine pH 6.0, Ur Specific Elliott 1.020, Urine Protein NEG, Urine Ketones NEG, Urine Nitrite NEG, Urine Bilirubin NEG, Urine Urobilinogen 0.2, Ur Leukocyte Esterase NEG, Ur Microscopic EXAM NOT REQUIRED, Urine Hemoglobin NEG, Urine Glucose NEG 12/25/161999: Anion Gap 6, Estimated GFR > 60, BUN/Creatinine Ratio 26.3 H, Glucose 122 H, Calcium 8.6, Magnesium 1.7, Total Bilirubin 0.7, AST 40 H, ALT 45, Alkaline Phosphatase 100, Troponin I < 0.01, Dfd-P-Fdtwkdjizoo Pept 1470 H, Total Protein 5.4 L, Albumin 2.6 L, Globulin 2.8, Albumin/Globulin Ratio 0.9 L, PT 11.7, INR 1.12, CBC w Diff NO MAN DIFF REQ, RBC 3.68 L, MCV 92.9, MCH 30.1, RDW 16.9 H, MPV 8.6, Gran % 52.3, Lymphocytes % 25.5, Monocytes % 16.5 H, Eosinophils % 5.3 H, Basophils % 0.4, Absolute Granulocytes 2.4, Absolute Lymphocytes 1.2, Absolute Monocytes 0.7 H, Absolute Eosinophils 0.2, Absolute Basophils 0, PUBS MCHC 32.4 L Old records including patient's previous CAT scan chest x-ray from 5 days ago reviewed case discussed with Dr. Camargo 12/25/2016 10:53:11 PM I discussed the patient at length all of her lab results need for repeat troponin and EKG at 2:30 patient resting comfortably in no apparent distress at this time Case discussed with and signed out to Dr. Camargo at 1 AM pending repeat labs. (NATALIA CHESTER,ROSALBA) Diagnostic Imaging: Viewed by Me: Radiology Read. Discussed w/RAD: Radiology Read. Radiology Impression: PATIENT: JONATHON JERONIMO PRESENT AGE: 61 PATIENT ACCOUNT NO: [id number] : 56 LOCATION: [facility] ORDERING PHYSICIAN: ROSALBA CHESTER SERVICE DATE: 12/25/16 EXAM TYPE: RAD - XRY- PORTABLE CHEST XRAY EXAMINATION: XR PORTABLE CHEST CLINICAL INFORMATION: Pneumonia CHF chest pain COMPARISON: Multiple prior examinations including CT scan of the abdomen and pelvis 12/20/2016 chest x-ray of 12/20/[address] scan of the chest August 2013 TECHNIQUE: Portable AP view of the chest was obtained. FINDINGS: There is some linear and/or patchy bibasilar opacity similar to prior The cardiac silhouette is enlarged but unchanged. A stent is present and unchanged. The pulmonary vascularity is normal. IMPRESSION: Stable bibasilar opacities may reflect atelectasis or scarring and/or evolving infiltrate. Stable enlarged cardiac silhouette DICTATED BY: MARK BELTRAN MD DATE/TIME DICTATED:12/25/162209 MICROBIOLOGY SUPERVISOR:DISHA DATE/TIME TRANSCRIBED:2209 CONFIDENTIAL, DO NOT COPY WITHOUT APPROPRIATE AUTHORIZATION. < Electronically signed in Other Vendor System> SIGNED BY: MARK BELTRAN MD 12/25/162216 Initial ED EKG: normal sinus at 70, no acute ST segment changes normal axis Prior EKG: unchanged (12/20/16) Rhythm Strip: normal sinus rhythm Hand-Off Endorsed To: LYNDSEY CAMILO,CHRISTIAN Carreno Endorsed Time: 0100 Pending: EKG, labs (REPEAT TROPONIN) (ROSALBA WILLIAM) Comments: 12/26/2016 3:53:05 AM patient signed out to me by PA shift change control specialist with repeat EKG and troponin pending. Repeat EKG and troponin are unchanged. I feel patient is now stable for discharge to her ECF and outpatient follow-up. (LYNDSEY CAMILO,CHRISTIAN Carreno) Departure Departure Condition: Stable Clinical Impression Primary Impression: Atypical chest pain Referrals: VIK CAMILO,JENNIE Collins (PCP/Family) Departure Forms: Customer Survey General Discharge Information (ROSALBA WILLIAM) Departure Disposition: HOME OR SELF CARE Additional Instructions: FOLLOW UP WITH YOUR PMD ON WEDNESDAY. Return if any concerns or sudden worsening. Please note that there might be incidental findings in your evaluation that are unrelated to the current emergency department visit. Please notify your primary care doctor about this emergency department visit in order to obtain and review all of the testing performed so that these incidental findings can be monitored as needed. If you had an x-ray performed, please understand that some fractures may not be seen on the initial set of x-rays. If your symptoms persist you might need a repeat set of x-rays to check for such a fracture. If you had a laceration evaluated, please understand that foreign bodies such as glass or wood may not be visible to the naked eye or on plain x-rays. If the wound becomes red, swollen, increasingly more painful or if there is any drainage from the wound, please have it reevaluated by a physician for the possibility of a retained foreign body. Thank you for choosing the [facility] Emergency Department for your care. It was a pleasure to serve you today. Christian Camargo M.D. [facility] (LYNDSEY CAMILO,CHRISTIAN Carreno) Critical Care Note Critical Care Note Critical Care Time: non-applicable (ROSALBA WILLIAM)
[2016-12-25 22:12] LABS: ABSOLUTE BASOPHIL COUNT 0 /CUMM (0.0-0.2); ABSOLUTE EOSINOPHIL COUNT 0.2 /CUMM (0.0-0.7); ABSOLUTE GRANULOCYTE CT 2.4 /CUMM (1.4-6.5); ABSOLUTE LYMPH COUNT 1.2 /CUMM (1.2-3.4); ABSOLUTE MONOCYTE COUNT 0.7 /CUMM (0.10-0.60); BASOPHIL % 0.4 % (0.0-2.0); EOSINOPHIL % 5.3 % (0-5); GRANULOCYTE % 52.3 % (42.2-75.2); HEMATOCRIT 34.2 % (37-47); MEAN CORPUSCULAR HGB 30.1 PG (27.0-31.0); MEAN CORPUSCULAR HGB CONC 32.4 G/DL (33.0-37.0); MEAN CORPUSCULAR VOLUME 92.9 FL (81.0-99.0); MEAN PLATELET VOLUME 8.6 FL (7.4-10.4); PLATELET COUNT 170 /CUMM (130-400); RBC DISTRIBUTION WIDTH 16.9 % (11.5-14.5); RED BLOOD CELL CT 3.68 /CUMM (4.20-5.40); WHITE BLOOD CELL COUNT 4.6 /CUMM (4.8-10.8)
[2016-12-25] MEDS ORDERED: ACIDOPHILUS1 EACH PO (22:13)
[2016-12-25] MEDS ORDERED: IPRAT-ALBUT 0.5-3 ML INH ×2 (22:16→22:31)
--- NOTE | 2016-12-25 22:17 | RADIOLOGY REPORT ---
EXAMINATION: XR PORTABLE CHEST CLINICAL INFORMATION: Pneumonia CHF chest pain COMPARISON: Multiple prior examinations including CT scan of the abdomen and pelvis 12/20/2016 chest x-ray of 12/20/[address] scan of the chest August 2013 TECHNIQUE: Portable AP view of the chest was obtained. FINDINGS: There is some linear and/or patchy bibasilar opacity similar to prior The cardiac silhouette is enlarged but unchanged. A stent is present and unchanged. The pulmonary vascularity is normal. IMPRESSION: Stable bibasilar opacities may reflect atelectasis or scarring and/or evolving infiltrate. Stable enlarged cardiac silhouette
[2016-12-25 22:23] LABS: PT 11.7 SEC (9.4-12.5)
[2016-12-25] MEDS ORDERED: ACEPHEN650 M1 PR (22:23)
[2016-12-25] MEDS ORDERED: GLUCAGON EMERGEN1 M1 IM (22:26)
[2016-12-25] MEDS ORDERED: DULCOLAX10 M1 RC (22:27)
[2016-12-25] MEDS ORDERED: MILK OF MA400 MG/52 PO (22:28)
[2016-12-25] MEDS ORDERED: FLEET ENEMA133 ML RC (22:28)
[2016-12-25] MEDS ORDERED: ADULT WAL-100 MG/5 M PO (22:30)
[2016-12-26 05:07] VITALS: BP 135/60
== END 2016-12-26 05:09 ==
LOC: ERH 21:16
PROVIDERS: Physician Assistant Medical
DX: R07.89 Other chest pain (principal); R06.02 Shortness of breath
CPT/HCPCS: 81003; 93005; 93010